=== PATIENT | female | born 1965 | race Caucasian/White ===

== ENCOUNTER 2020-01-01 08:55 | Day surgery (SDC) | payer OTHER, SELFPAY ==
[2019-12-27 14:13] VITALS: BMI 20.7
--- NOTE | 2019-12-27 15:33 | HO.ANESPROP2 ---
HPI - Anesthesia Eval Consult details Narrative: 54yo F for colonoscopy: screening [facility] Past Medical History Medical History No active medical problems Surgical History Surgical History History of right knee surgery Social History Social History Smoking Status: Never smoker Use of substances other than those prescribed or required for medical reasons: No Have you been hit, kicked, punched, or otherwise hurt by someone within the past year? If so, by whom?: No Advance Directives: No Advance Directives Information Provided: No Advance Directives on File: No Recently lost weight without trying: No Meds Allergies Allergy/AdvReac Type Severity Reaction Status Date / Time Penicillins [PENICILLINS] Allergy Intermediate rash/? Verified 01/01/20 09:52 hives Home Medications Medication Instructions Recorded Confirmed Type No Known Home Meds 12/27/19 12/27/19 History Exam Exam Date and Time: December 27, 2019 1533 Height,Weight and Vital Signs: Height 5 ft 5 in Weight 56.699 kg Assessment and Plan Assessment Anesthesia Assessment: Chart Reviewed
[2020-01-01] MEDS: Lactated Ringers 1,000 ML 100 ML IVCONT (09:46)
[2020-01-01 09:47] VITALS: BP 114/59; PULSE 49; RESP 16; TEMP 36.7; O2SAT 100
[2020-01-01 09:48] VITALS: BMI 21.6
--- NOTE | 2020-01-01 10:12 | MHC.SHP ---
Pre-Procedural Eval Section B Chief Complaint: screening Details of Present Illness: screening Relevant Family History (Specify if Yes): No Relevant Social History: None Present Medications: None Medical History: No relevant PMH History of Previous Operations: No relevant previous surgery Allergies: Allergies Allergy/AdvReac Type Severity Reaction Status Date / Time Penicillins [PENICILLINS] Allergy Intermediate rash/? Verified 01/01/20 09:52 hives Review of Systems Sugical H&P ROS: Negative: Constitution, Cardiovascular, Respiratory, Neurological, Psychiatric, Hem-Onc, Allergic/Immunologic, Gastrointestinal, Genitourinary, Musculoskeletal, Integumentary, Endocrine and Eyes/Ears/Nose/Throat Exam Surgical H&P Exam: Normal: HEENT, Normal: Heart, Normal: Lungs, Normal: Extremities, Normal: Abdomen, Normal: Skin and Normal: Neurological Plan Diagnosis/Plan: Unchanged Patient has been examined and remains a candidate for the planned procedure
[2020-01-01 10:55] VITALS: BP 90/45; PULSE 48; RESP 15; TEMP 36.9; O2SAT 98
--- NOTE | 2020-01-01 10:56 | PM.OP ---
Brief Operative Note Date of procedure: 01/01/20 Pre-op diagnosis: screening Post-op diagnosis: other (normal exam) Procedure: colonoscopy Surgeon: Angel Crews Anesthesia: MAC Estimated blood loss (mL): 0 Pathology: none sent Condition: stable Disposition: PACU
[2020-01-01 11:15] VITALS: BP 103/36; PULSE 41; RESP 16; O2SAT 100
--- NOTE | 2020-01-01 11:29 | OP_ITS ---
SURGEON: Angel Crews MD INDICATIONS: Colon cancer screening. PREOPERATIVE DIAGNOSIS: POSTOPERATIVE DIAGNOSIS: PROCEDURE PERFORMED: Colonoscopy to the cecum. ESTIMATED BLOOD LOSS: COMPLICATIONS: ANESTHESIA: ASSISTANTS: SPECIMENS: MEDICATIONS: Monitored anesthesia care. DESCRIPTION OF PROCEDURE: History and physical performed. The risks and benefits of the procedure were explained to the patient. Informed consent was obtained. The patient was placed in the left lateral decubitus position. A digital rectal exam was performed and was found to be normal. The Olympus pediatric video colonoscope was introduced into the rectum and advanced to the cecum without difficulty. The cecum was identified by transillumination, palpation, and identification of ileocecal valve. Examination was performed and the scope was removed. She tolerated the procedure well and was taken to recovery area in stable condition. FINDINGS: The terminal ileum was not examined. The visualized colonic mucosa was within normal limits. The quality of the prep was good. No polyps were identified. Retroflexed examination was normal. IMPRESSION: Normal colonoscopy. RECOMMENDATION: 1. Follow up as needed. 2. Repeat colonoscopy is recommended in 10 years for average risk individuals. MD CARMELITA [facility]AM / [id number]
[2020-01-01 11:32] VITALS: BP 113/62; PULSE 45; RESP 18; TEMP 36.9; O2SAT 100
--- NOTE | 2020-01-01 11:59 | HO.POSTANES ---
Post Anesthesia Evaluation Post Anesthesia Evaluation Vital Signs: Vital Signs Temp Pulse Resp BP Pulse Ox 01/01/20 11:32 98.4 F 45 L 18 113/62 100 01/01/20 11:15 41 L 16 103/36 L 100 01/01/20 10:55 98.5 F 48 L 15 90/45 L 98 01/01/20 09:47 98.0 F 49 L 16 114/59 L 100 Anesthesia: Monitored Mental Status: Awake Pain Control: Satisfactory Nausea/Vomiting: None Hydration: Adequate Anesthesia-Related Issues: No Anes. Related Issues
== END 2020-01-01 12:15 | disposition home or self-care (01) ==
PROVIDERS: PCP Nurse Practitioner Family; Visit Provider Internal Medicine Gastroenterology
PROC: 0DJD8ZZ Inspection of Lower Intestinal Tract, Via Natural or Artificial Opening Endoscopic (ICD-10-PCS; CPT 45378; principal; 2020-01-01 10:00)
DX: Z12.11 Encounter for screening for malignant neoplasm of colon (principal); Z88.0 Allergy status to penicillin
CPT/HCPCS: 45378